=== PATIENT | male | born 1990 | race Caucasian/White ===

== ENCOUNTER 2021-11-01 19:54 | Inpatient (IN) | payer BC ==
[2021-11-01] MEDS ORDERED: ONDANSETRON *ODT* 4 MG TABLET SL PRN (21:30)
[2021-11-01] MEDS ORDERED: MENTHOL/PHENOL 1 EACH UD MM PRN (21:30)
[2021-11-01] MEDS ORDERED: MAG HYDROX/AL HYDROX/SIMETH 30 ML UNIT-DOSE CUP PO PRN (21:30)
[2021-11-01] MEDS ORDERED: BISMUTH SUBSALICYLATE 524 MG/30 ML PO PRN (21:30)
[2021-11-01] MEDS ORDERED: NICOTINE 10 MG CARTRIDGE (INHALER) IH PRN (21:30)
[2021-11-01] MEDS ORDERED: METHOCARBAMOL 500 MG TABLET PO PRN (21:30)
[2021-11-01] MEDS ORDERED: MAGNESIUM CITRATE 300 ML BOTTLE PO PRN (21:30)
[2021-11-01] MEDS ORDERED: IBUPROFEN 400 MG TABLET (FP) PO PRN (21:30)
[2021-11-01] MEDS ORDERED: ACETAMINOPHEN 325 MG TABLET (FP) PO PRN ×2 (21:30)
[2021-11-01] MEDS ORDERED: MAGNESIUM HYDROX 2400MG/30ML ORAL SUSPENSION 30 ML CUP PO PRN (21:30)
[2021-11-01 22:49] VITALS: BMI 31.6
[2021-11-02] MEDS: MELATONIN 5 MG TABLETS PO SCH ×2 (06:41→22:51)
[2021-11-02] MEDS: THIAMINE HCL 100 MG TABLET (FP) PO SCH ×2 (06:42→22:51)
[2021-11-02] MEDS ORDERED: LORazepam 1 MG TABLET PO PRN (09:32)
[2021-11-02] MEDS: LORazepam 2 MG TABLET PO SCH ×3 (11:11→22:50)
[2021-11-02] MEDS: NICOTINE 21 MG/24 HOURS TOPICAL PATCH TD SCH (11:11)
[2021-11-02] MEDS: PRENATAL VITAMINS W/ FOLIC ACID TABLET (FP) PO SCH (11:12)
[2021-11-03] MEDS: LORazepam 2 MG TABLET PO SCH ×4 (05:51→22:17)
[2021-11-03] MEDS: NICOTINE 21 MG/24 HOURS TOPICAL PATCH TD SCH (10:37)
[2021-11-03] MEDS: PRENATAL VITAMINS W/ FOLIC ACID TABLET (FP) PO SCH (10:37)
[2021-11-03 12:36] LABS: HEMATOCRIT 41.1 % (35.4-49); HEMOGLOBIN 13.5 GM/dL (11.7-16.9); MCH 32.4 pg (25.7-33.7); MCHC 32.8 g/dl (32.0-35.9); MEAN PLT VOLUME 9.2 fl (7.5-11.1); PLATELET COUNT 295 10^3/uL (134-434); RBC 4.16 M/mm3 (4.00-5.60); RDW 16.7 % (11.9-15.9); WHITE BLOOD COUNT 7.9 K/mm3 (4.0-10.0)
[2021-11-03 12:46] LABS: ALBUMIN 3.1 g/dl (3.4-5.0)
[2021-11-03 12:48] LABS: CALCIUM 8.8 mg/dL (8.5-10.1)
[2021-11-03 12:51] LABS: CREATININE 1.2 mg/dL (0.55-1.3)
[2021-11-03 12:53] LABS: BILIRUBIN,TOTAL 0.9 mg/dL (0.2-1); TOT PROT 6.4 g/dl (6.4-8.2)
[2021-11-03] MEDS: THIAMINE HCL 100 MG TABLET (FP) PO SCH (22:18)
[2021-11-03] MEDS: MELATONIN 5 MG TABLETS PO SCH (22:18)
[2021-11-04] MEDS: LORazepam 1 MG TABLET PO SCH ×2 (05:45→10:11)
[2021-11-04 08:44] VITALS: BP 167/101; PULSE 82; TEMP 97.1
[2021-11-04] MEDS: PRENATAL VITAMINS W/ FOLIC ACID TABLET (FP) PO SCH (10:10)
[2021-11-04] MEDS: NICOTINE 21 MG/24 HOURS TOPICAL PATCH TD SCH (10:11)
[2021-11-05] MEDS ORDERED: LORazepam 0.5 MG TABLET PO PRN
[2021-11-05] MEDS ORDERED: LORazepam 0.5 MG TABLET PO SCH (05:00)
[2021-11-06] MEDS ORDERED: LORazepam 0.5 MG TABLET PO ONE (05:00)
== END 2021-11-04 11:12 | disposition home or self-care (01) | DRG 897 ==
LOC: YASAS 19:54 → Y3N 11-02 09:47
PROVIDERS: ADMIT Allergy & Immunology; ATTEND Allergy & Immunology
PROC: HZ2ZZZZ Detoxification Services for Substance Abuse Treatment (ICD-10-PCS; principal; 2021-11-02)
DX: F10.230 Alcohol dependence with withdrawal, uncomplicated (principal); F11.23 Opioid dependence with withdrawal; F17.210 Nicotine dependence, cigarettes, uncomplicated; F19.24 Other psychoactive substance dependence with psychoactive substance-induced mood disorder; F32.A Depression, unspecified; E66.9 Obesity, unspecified; Z68.31 Body mass index [BMI] 31.0-31.9, adult
CPT/HCPCS: 36415; 80053; 85027; 86780; 93005; 93010; C9803; U0003; U0005

== ENCOUNTER 2021-11-09 01:44 | Emergency (ER) | payer OTHER ==
[2021-11-09 02:39] VITALS: BP 155/96; PULSE 94; TEMP 98.6; BMI 30.7
[2021-11-09] MEDS ORDERED: chlordiazePOXIDE HCL 25 MG CAPSULE PO ONE (02:49)
[2021-11-09] MEDS ORDERED: SODIUM CHLORIDE 0.9% 500 ML INFUS.BAG IV ONE (02:49)
[2021-11-09] MEDS ORDERED: THIAMINE HCL 200 MG/2 ML VIAL IVPB ONE (02:52)
[2021-11-09] MEDS ORDERED: FOLIC ACID 1 MG TABLET (FP) PO ONE (02:52)
[2021-11-09] MEDS ORDERED: THIAMINE HCL 200 MG/2 ML VIAL ONE (03:11)
[2021-11-09] MEDS ORDERED: chlordiazePOXIDE HCL 25 MG CAPSULE ONE (03:14)
[2021-11-09 03:18] LABS: BASO % 0.8 % (0-2.0); EOS % 1.2 % (0-4.5); HEMOGLOBIN 12.7 GM/dL (11.7-16.9); LYMPH % 12.3 % (8-40); MCH 32.9 pg (25.7-33.7); MCHC 34.2 g/dl (32.0-35.9); MEAN CELL VOLUME 96.1 fl (80-96); MEAN PLT VOLUME 7.8 fl (7.5-11.1); MONO % 6.7 % (3.8-10.2); PLATELET COUNT 325 10^3/uL (134-434); RBC 3.85 M/mm3 (4.00-5.60); RDW 16.2 % (11.9-15.9); WHITE BLOOD COUNT 12.1 K/mm3 (4.0-10.0)
[2021-11-09] MEDS ORDERED: FOLIC ACID 1 MG TABLET (FP) ONE (03:18)
[2021-11-09 03:36] LABS: CALCIUM 8.3 mg/dL (8.5-10.1)
[2021-11-09 03:37] LABS: ALBUMIN 2.8 g/dl (3.4-5.0); BLOOD UREA NITROGEN 9.7 mg/dL (7-18); MAGNESIUM 1.9 mg/dL (1.8-2.4)
[2021-11-09 03:39] LABS: CREATININE 1.1 mg/dL (0.55-1.3)
[2021-11-09 03:41] LABS: BILIRUBIN,TOTAL 0.2 mg/dL (0.2-1); TOT PROT 6.3 g/dl (6.4-8.2)
== END 2021-11-09 05:59 | disposition home or self-care (01) ==
LOC: JER 01:44
PROC: 3E033GC Introduction of Other Therapeutic Substance into Peripheral Vein, Percutaneous Approach (ICD-10-PCS; principal; 2021-11-09)
DX: F10.239 Alcohol dependence with withdrawal, unspecified (principal)
CPT/HCPCS: 36415; 80053; 83690; 83735; 85025; 99284-25

== ENCOUNTER 2021-11-09 06:42 | Inpatient (IN) | payer OTHER ==
[2021-11-09 07:05] VITALS: BMI 33.0
[2021-11-09] MEDS ORDERED: BISMUTH SUBSALICYLATE 524 MG/30 ML PO PRN (09:18)
[2021-11-09] MEDS ORDERED: MAGNESIUM CITRATE 300 ML BOTTLE PO PRN (09:18)
[2021-11-09] MEDS ORDERED: ONDANSETRON *ODT* 4 MG TABLET SL PRN (09:18)
[2021-11-09] MEDS ORDERED: METHOCARBAMOL 500 MG TABLET PO PRN (09:18)
[2021-11-09] MEDS ORDERED: NICOTINE 10 MG CARTRIDGE (INHALER) IH PRN (09:18)
[2021-11-09] MEDS ORDERED: ACETAMINOPHEN 325 MG TABLET (FP) PO PRN ×2 (09:18)
[2021-11-09] MEDS ORDERED: MAGNESIUM HYDROX 2400MG/30ML ORAL SUSPENSION 30 ML CUP PO PRN (09:18)
[2021-11-09] MEDS ORDERED: MENTHOL/PHENOL 1 EACH UD MM PRN (09:18)
[2021-11-09] MEDS ORDERED: MELATONIN 5 MG TABLETS PO PRN (09:18)
[2021-11-09] MEDS ORDERED: MAG HYDROX/AL HYDROX/SIMETH 30 ML UNIT-DOSE CUP PO PRN (09:18)
[2021-11-09] MEDS ORDERED: TRIMETHOBENZAMIDE HCL 200MG/2ML INJ IM ONE (09:20)
[2021-11-09] MEDS ORDERED: chlordiazePOXIDE HCL 25 MG CAPSULE PO PRN (09:21)
[2021-11-09] MEDS ORDERED: chlordiazePOXIDE HCL 10 MG CAPSULE PO ONE (09:33)
[2021-11-09] MEDS ORDERED: chlordiazePOXIDE HCL 25 MG CAPSULE PO ONE (10:00)
[2021-11-09] MEDS ORDERED: LORazepam 1 MG TABLET PO PRN (10:22)
[2021-11-09] MEDS ORDERED: LORazepam 2 MG/ML SDV VIAL IM ONE (10:45)
[2021-11-09] MEDS ORDERED: chlordiazePOXIDE HCL 25 MG CAPSULE PO SCH (11:00)
[2021-11-09] MEDS: LORazepam 2 MG TABLET PO SCH ×3 (13:25→22:35)
[2021-11-09] MEDS: PRENATAL VITAMINS W/ FOLIC ACID TABLET (FP) PO SCH (13:26)
[2021-11-09] MEDS: hydrOXYzine PAMOATE 25 MG CAPSULE (FP) PO PRN (17:57)
[2021-11-09] MEDS: THIAMINE HCL 100 MG TABLET (FP) PO SCH (22:35)
[2021-11-10] MEDS: LORazepam 2 MG TABLET PO SCH ×4 (06:14→22:10)
[2021-11-10] MEDS: PRENATAL VITAMINS W/ FOLIC ACID TABLET (FP) PO SCH (10:30)
[2021-11-10] MEDS: IBUPROFEN 400 MG TABLET (FP) PO PRN (17:24)
[2021-11-10] MEDS: THIAMINE HCL 100 MG TABLET (FP) PO SCH (22:10)
[2021-11-10] MEDS: hydrOXYzine PAMOATE 25 MG CAPSULE (FP) PO PRN (22:10)
[2021-11-11] MEDS ORDERED: chlordiazePOXIDE HCL 25 MG CAPSULE PO SCH (05:00)
[2021-11-11] MEDS: IBUPROFEN 400 MG TABLET (FP) PO PRN (06:38)
[2021-11-11] MEDS: LORazepam 1 MG TABLET PO SCH ×2 (06:38→10:32)
[2021-11-11 08:51] VITALS: BP 154/86; PULSE 67; TEMP 98.6
[2021-11-11] MEDS: hydrOXYzine PAMOATE 25 MG CAPSULE (FP) PO PRN (10:31)
[2021-11-11] MEDS: PRENATAL VITAMINS W/ FOLIC ACID TABLET (FP) PO SCH (10:34)
[2021-11-12] MEDS ORDERED: LORazepam 0.5 MG TABLET PO PRN
[2021-11-12] MEDS ORDERED: chlordiazePOXIDE HCL 10 MG CAPSULE PO PRN
[2021-11-12] MEDS ORDERED: LORazepam 0.5 MG TABLET PO SCH (05:00)
[2021-11-12] MEDS ORDERED: chlordiazePOXIDE HCL 10 MG CAPSULE PO SCH (05:00)
[2021-11-13] MEDS ORDERED: LORazepam 0.5 MG TABLET PO ONE (05:00)
[2021-11-13] MEDS ORDERED: chlordiazePOXIDE HCL 10 MG CAPSULE PO SCH (05:00)
[2021-11-14] MEDS ORDERED: chlordiazePOXIDE HCL 10 MG CAPSULE PO ONE (05:00)
== END 2021-11-11 11:33 | disposition left against medical advice (07) | DRG 770 ==
LOC: YASAS 06:42 → Y3N 11:41
PROVIDERS: ADMIT Allergy & Immunology; ATTEND Allergy & Immunology
PROC: HZ2ZZZZ Detoxification Services for Substance Abuse Treatment (ICD-10-PCS; principal; 2021-11-09)
DX: F10.230 Alcohol dependence with withdrawal, uncomplicated (principal); F17.210 Nicotine dependence, cigarettes, uncomplicated
CPT/HCPCS: 36415; 80053; 83690; 83735; 85025; 99284-25; C9803-CS; U0003; U0005

== ENCOUNTER 2022-03-29 16:11 | Emergency (ER) | payer BC, OTHER ==
[2022-03-29 16:43] VITALS: BMI 30.7
[2022-03-29] MEDS ORDERED: BUPRENORPHINE/NALOXONE 4 MG/1 MG FILM PACKET SL ONE (17:18)
[2022-03-29] MEDS ORDERED: valACYclovir HCL 500 MG TABLET (FP) PO ONE (17:27)
[2022-03-29] MEDS ORDERED: BUPRENORPHINE/NALOXONE 2 MG/0.5 MG FILM PACKET SL ONE (17:44)
[2022-03-29] MEDS ORDERED: BUPRENORPHINE/NALOXONE 2 MG/0.5 MG FILM PACKET ONE (17:45)
[2022-03-29] MEDS ORDERED: valACYclovir HCL 500 MG TABLET (FP) ONE (17:46)
[2022-03-29 19:47] VITALS: BP 138/80; PULSE 86
== END 2022-03-29 19:47 | disposition home or self-care (01) ==
LOC: JER 16:11
DX: F11.23 Opioid dependence with withdrawal (principal)
CPT/HCPCS: 93005; 93010; 99283-25